=== PATIENT | female | born 1970 | race Two or more races ===

== ENCOUNTER 2023-01-15 10:22 | Emergency (ER) | payer OTHER ==
[~2023-01-15] VITALS: Ht 154.9 cm; Wt 95.3 kg
[2023-01-15] MEDS ORDERED: METFORMIN HCL500 M3 PO (11:08)
[2023-01-15] MEDS ORDERED: CHILDREN'S ASPI81 MG (11:09)
[2023-01-15] MEDS ORDERED: SIMVASTATIN80 MG (11:09)
[2023-01-15] MEDS ORDERED: LEVO-T50 MCG PO (11:09)
[2023-01-15] MEDS ORDERED: GLIPIZIDE XL2.5 MG (11:10)
== END 2023-01-15 13:34 | disposition home or self-care (01) ==
LOC: ER 10:22
DX: S93.492A Sprain of other ligament of left ankle, initial encounter (principal); W18.39XA Other fall on same level, initial encounter; Y93.89 Activity, other specified; Y92.89 Other specified places as the place of occurrence of the external cause; E11.9 Type 2 diabetes mellitus without complications; Z79.84 Long term (current) use of oral hypoglycemic drugs; E78.00 Pure hypercholesterolemia, unspecified; I10 Essential (primary) hypertension; S80.01XA Contusion of right knee, initial encounter